=== PATIENT | male | born 1970 ===

== ENCOUNTER 2017-04-30 09:30 | Emergency (ER) | payer SELFPAY ==
[~2017-04-30] VITALS: Ht 167.6 cm; Wt 90.7 kg
[2017-04-30 10:06] VITALS: BP 136/84
== END 2017-04-30 10:06 | disposition left against medical advice (07) ==
LOC: ED 09:30
DX: Z53.21 Procedure and treatment not carried out due to patient leaving prior to being seen by health care provider (principal)